=== PATIENT | male | born 1990 | race Caucasian/White ===

== ENCOUNTER 2024-08-04 16:11 | Emergency (ER) | payer OTHER, SELFPAY ==
--- NOTE | ~2024-08-04 | XR_ITS ---
EXAM: XR finger 1st RT min 2V DATE: 08/04/2024 16:34 HISTORY: pain . COMPARISON: None available. FINDINGS: Normal mineralization. No fracture or dislocation. No lytic or blastic lesion. Joint space s are maintained. No erosion or periosteal change. Soft tissues within normal limits. IMPRESSION: No acute osseous finding in the right thumb. Reviewed, dictated and finalized at location K.
[2024-08-04 16:37] VITALS: BP 149/98; PULSE 65; RESP 18; TEMP 36.7; O2SAT 99
--- NOTE | 2024-08-04 16:58 | ED.UPPEXIN ---
HPI - Extremity Injury (Upper) General Chief Complaint: Extremity Injury, Upper Stated Complaint: right thumb pain Time Seen by Provider: 08/04/24 16:15 Source: patient Mode of arrival: ambulatory Limitations: no limitations History of Present Illness HPI narrative: Patient is a 33-year-old male who presents the ED with report of right thumb pain. Patient reports he was riding a live bull last night and fell off of bull, injuring his right thumb. C/o limited ROM, pain to 1st mcp region. Denies numbness. Denies other injuries. Related Data Allergies Allergy/AdvReac Type Severity Reaction Status Date / Time No Known Allergies Allergy Verified 08/04/24 16:13 Review of Systems Review of Systems: All systems reviewed & are unremarkable except as noted in HPI. All systems reviewed & are unremarkable except as noted in HPI and below Exam Narrative: GENERAL: Well appearing, well-nourished, non-toxic, in no acute distress. HEAD: Normocephalic, atraumatic. RESPIRATORY: Airway patent, respirations nonlabored. CARDIOVASCULAR: Regular rate and rhythm. Radial pulses strong and easily palpable MUSCULOSKELETAL: No gross deformities. Mild swelling throughout R 1st mcp joint with focal tenderness. Limited flexion and abduction ROM of R thumb d/t pain. Sensation intact. Capillary refill intact. SKIN: Warm, dry, normal color. NEURO: A&O X3. Speech clear. PSYCHIATRIC: Appropriate mood and affect. Normal interaction. Course Vital Signs Vital signs: Vital Signs Temperature 98.0 F 08/04/24 16:37 Pulse Rate 65 08/04/24 16:37 Respiratory Rate 18 08/04/24 16:37 Blood Pressure 149/98 H 08/04/24 16:37 Pulse Oximetry 99 08/04/24 16:37 Oxygen Delivery Room Air 08/04/24 16:37 Temperature 98.0 F 08/04/24 16:37 Pulse Rate 65 08/04/24 16:37 Respiratory Rate 18 08/04/24 16:37 Blood Pressure 149/98 H 08/04/24 16:37 Pulse Oximetry 99 08/04/24 16:37 Oxygen Delivery Room Air 08/04/24 16:37 MDM - Extremity Injury (Upper) MDM Narrative Medical decision making narrative: Patient?s injury is consistent with musculoskeletal etiology. No signs of neurologic or vascular compromise on physical examination. Compartments are soft without signs of compartment syndrome. XR of right finger negative, no acute osseous abnormality. Discussed possibility of finger sprain, possibility of gamekeepers thumb/ligamentous injury. Offered full splint however patient declined. Given alexandro bandage. Recommended to obtain otc thumb spica splint and wear at all times. Recommended close f/u with hand specialist/surgeon. Patient lives near [place], [place], advised to find hand specialist there. Patient is felt to be stable for discharge home and further outpatient management and treatment. Discussed return precautions. Medical Records Attestation: I reviewed the patient's medical records. Imaging Data Attestation: I personally reviewed and interpreted this imaging study as follows: Radiologist's impression: ITS Impressions Finger X-Ray 08/04/24 16:40 IMPRESSION: No acute osseous finding in the right thumb. Discharge Plan Discharge Clinical Impression: Sprain of right thumb Qualifiers: Encounter type: initial encounter Sprain of finger site: unspecified site Qualified Code(s): S63.601A - Unspecified sprain of right thumb, initial encounter Patient Disposition: Home Condition: Stable Instructions: Antibiotic Form, Skier's Thumb (ED), Finger Sprain (ED) Additional Instructions: Your x-ray did not show any evidence of fracture. You may have injured a ligament of your thumb. Utilize Alexandro bandage for support and/or order a thumb spica splint online. Recommend wearing splint at all times. Recommend Tylenol and Ibuprofen as needed for pain. Follow up with a hand specialist for further evaluation. Return to an ED for new or worsening concerns. Patient Language: Swedish Follow-up/Referrals: PHYSICIAN,FUEL HOUSE ATTENDANT [Primary Care Provider] - Time of Disposition: 17:06
--- NOTE | 2024-08-04 17:15 | PC.NURSE ---
KELLY bandage placed on right wrist.
== END 2024-08-04 17:19 | disposition home or self-care (01) ==
PROVIDERS: Emergency Provider Physician Assistant
DX: S63.601A Unspecified sprain of right thumb, initial encounter (principal); V80.018A Animal-rider injured by fall from or being thrown from other animal in noncollision accident, initial encounter
CPT/HCPCS: 73140; 99283